=== PATIENT | male | born 1955 | race Caucasian/White ===

== ENCOUNTER 2024-07-14 15:19 | Emergency (ER) | payer BC, SELFPAY ==
[2024-07-14 15:21] VITALS: BP 141/71
[2024-07-14] MEDS: NORCO 5/325 1 TABLET PO (18:02)
[2024-07-14 19:18] VITALS: BP 131/77
[2024-07-14 20:41] LABS: % Basophils 0.4 % (0-2); % Eosinophils 3.1 % (0-6); % Immature Granulocytes 0.6 % (0-0.5); % Monocytes 14.1 % (1.7-9.3); % Neutrophils 54.8 % (42.2-75.2); Absolute Eosinophils 0.2 10^3/uL (0-0.7); Absolute Lymphocytes 1.8 10^3/uL (1.2-3.4); Absolute Monocytes 0.9 10^3/uL (0.1-0.6); Absolute Neutrophils 3.7 10^3/uL (1.4-6.5); Hematocrit 45.5 % (39.0-52.0); Hemoglobin 15.4 g/dL (13.0-18.0); Mean Corp Hgb Conc. 33.8 g/dL (33.0-37.0); Mean Corpuscular Volume 88.7 fL (80.0-94.0); Mean Platelet Volume 11.2 fL (7.4-10.4); Nucleated Red Blood Cells % 0 % (-); Platelet Count 106 10^3/uL (130-400); Red Blood Cell Count 5.13 10^6/uL (4.70-6.10); Red Cell Dist. Width 13.2 % (11.5-14.5); White Blood Cell Count 6.7 10^3/uL (4.8-10.8)
[2024-07-14 20:55] LABS: Blood Urea Nitrogen 32 mg/dl (9-20); Calcium 9.3 mg/dl (8.4-10.2); Carbon Dioxide 18 mmol/L (22-30); Chloride 108 mmol/L (98-107); Glucose 101 mg/dl (70-99); Potassium 4.6 mmol/L (3.5-5.1); Sodium 139 mmol/L (135-145); eGFR 40.75
[2024-07-14] MEDS: ELIQUIS 10 MG PO (21:22)
[2024-07-14 21:25] VITALS: BP 141/83
--- NOTE | 2024-07-14 23:28 | ED.GENMED ---
History of Present Illness
General
Chief Complaint: DVT/Possible Blood Clot
Source: patient
Exam Limitations: none
Time Seen by Provider: 07/14/24 16:40
Nursing documentation reviewed up to this point in time: agreed with
History of Present Illness
History of Present Illness:
Patient to ED with complaint of worsening left calf pain x 1 week. No history of trauma. No redness or swelling. Having difficulty with wt bearing due to pain. Brought to ED by spouse for charo.
Past History
Past History
ED Past Medical History: NIDDM
ED Past Surgical History: None
Social History
Tobacco: Non-smoker
Review of Systems
Review of Systems
Allergies reviewed?: Yes
All Other Systems: ROS reviewed and negative except as documented in HPI and ROS
Constitutional: Reports no symptoms
EENT: Reports no symptoms
Respiratory: Reports no symptoms
Cardiac: Reports no symptoms
ABD/GI: Reports no symptoms
Musculoskeletal: Reports other (Left calf pain)
Skin: Reports no symptoms
Neurological: Reports no symptoms
Psychiatric: Reports no symptoms
Phy Exam
General Physical Exam
General Presentation: well appearing and no apparent distress
General age: appears stated age
General Skin: warm and dry
General Habitus: normal
General Mental: alert
General Hydration: appears well hydrated
Cardiovascular Exam
Cardiovascular Exam: regular rate/rhythm and no edema
Musculoskeletal Exam
Musculoskeletal Exam: full ROM, no edema and neuro vasc intact
Skin Exam
Skin Exam: normal color, warm/dry and no rash
Psychiatric Exam
Psychiatric Exam: normal mood/affect
Course
Orders/Labs/Results
Orders:
Orders
07/14/24 15:23
Legs, left US [US Periph Venous LOWER Ext LT] Urgent
Comment:
Reason For Exam: calf pain
07/14/24 18:00
Hydrocodone 5/APAP 325 [Dearing 5/325] 1 tablet PO NOW STA
07/14/24 20:22
Basic Metabolic Panel Urgent
Complete Blood Count/With Diff Urgent
07/14/24 21:17
Apixaban [Eliquis] 10 mg PO NOW STA
Abnormal Lab Results
07/14/24
20:22
Plt Count 106 L 10^3/uL
(130-400)
MPV 11.2 H fL
(7.4-10.4)
Absolute Monos (auto) 0.9 H 10^3/uL
(0.1-0.6)
Immature Gran % 0.6 H %
(0-0.5)
Monocytes % 14.1 H %
(1.7-9.3)
Chloride 108 H mmol/L
(98-107)
Carbon Dioxide 18 L mmol/L
(22-30)
BUN 32 H mg/dl
(9-20)
Creatinine 1.8 H mg/dL
(0.7-1.3)
Glucose 101 H mg/dl
(70-99)
07/14/24 20:22
07/14/24 20:22
Vital Signs
Initial and Last Documented VS:
Initial Vital Signs
Temp Pulse Resp BP Pulse Ox
98.7 F 96 16 141/71 99
07/14/24 15:21 07/14/24 15:21 07/14/24 15:21 07/14/24 15:21 07/14/24 15:21
Last Documented Vital Signs
Temp Pulse Resp BP Pulse Ox
98.7 F 85 18 141/83 97
07/14/24 15:21 07/14/24 21:25 07/14/24 21:25 07/14/24 21:25 07/14/24 21:25
*Radiology
Radiology exam reviewed: radiology read reviewed
*Pulse Oximetry
Patient hypoxic: no
*Critical Care Note
Total Time (30-74mins, 75-104mins- exclusive of procedures): Not Applicable
ED Attending Note
-
Portions of this chart may have been created with voice recognition software.� Occasional wrong word or��sound alike� substitutions may have occurred due to the inherent limitations of voice recognition software.
Discharge Plan
Departure
Patient Disposition: Home (Routine Discharge)
Date of Disposition: 07/14/24
Time of Disposition: 21:17
Patient with high blood pressure during this ER visit?: No
Condition: Good
Covid-19: Not Applicable
Discharge Problem:
DVT (deep venous thrombosis)
Instructions: Deep Vein Thrombosis (Blood Clots in the Legs) (DC)
Prescriptions:
New
Eliquis DVT-PE Treat 30D Start 5 mg (74 tabs) tablets,dose pack
See Rx Instructions .ROUTE .COMPLEX Qty: 74 0RF
Rx Instructions:
orally per package directions
hydrocodone-acetaminophen 5-325 mg tablet
1 tab PO Q4H PRN (Reason: Pain) Qty: 10 0RF
Discontinued
oxycodone-acetaminophen 5 MG/325 MG tablet
1 tab PO Q4HPRN PRN (Reason: Pain) Qty: 15 0RF
Referrals:
[facility] [Outside] (Physician referral line)
Activity Restrictions/Additional Instructions:
You will need to follow up with your primary care provider this week.
Interventions
Interventions:
*Risk Screen - Suicide Last Done: 07/14/24 15:23
*General Assessment Last Done: 07/14/24 17:03
*Neglect/Abuse Screening Last Done: 07/14/24 15:23
*ED COVID-19 Vaccine History Last Done: 07/14/24 17:03
*Nursing Disposition Last Done: 07/14/24 21:30
ED- Cardiac Assessment Last Done: 07/14/24 17:17
ED- Pulmonary Assessment Last Done: 07/14/24 17:17
ED-Peripheral Vascular Assessment Last Done: 07/14/24 17:17
ED-Skin Assessment Last Done: 07/14/24 17:17
Discharge Date and Time
Discharge Date/Time: 07/14/24 21:30
Print Language: KOSOVAN
== END 2024-07-14 21:30 | disposition home or self-care (01) ==
LOC: EMR 15:19
PROVIDERS: Nurse Practitioner; EMERGENCY PHYSICIAN Emergency Medicine; FAMILY PHYSICIAN Internal Medicine Endocrinology, Diabetes & Metabolism
DX: I82.442 Acute embolism and thrombosis of left tibial vein (principal); E11.9 Type 2 diabetes mellitus without complications
CPT/HCPCS: 99284; 80048; 85025; 93971